=== PATIENT | male | born 1995 | race African-American/Black ===

== ENCOUNTER 2017-05-29 14:25 | Emergency (ER) | payer MEDICAID ==
[~2017-05-29] VITALS: Ht 172.7 cm; Wt 70.0 kg
[2017-05-29 14:27] VITALS: BP 150/94
== END 2017-05-29 18:22 | disposition left against medical advice (07) ==
LOC: ER 14:30
DX: R06.00 Dyspnea, unspecified (principal); Z53.21 Procedure and treatment not carried out due to patient leaving prior to being seen by health care provider

== ENCOUNTER 2017-05-30 05:05 | Emergency (ER) | payer MEDICAID ==
[~2017-05-30] VITALS: Ht 165.1 cm; Wt 70.0 kg
[2017-05-30 07:35] VITALS: BP 121/69
[2017-05-30] MEDS ORDERED: MAGNESIUM/ALUMINUM HYDROXIDE/SIMETHICONE 30ML UDC PO STA (07:36)
[2017-05-30] MEDS ORDERED: VISCOUS LIDOCAINE 2% 15 ML UDC PO STA (07:36)
[2017-05-30] MEDS ORDERED: FAMOTIDINE 20MG TABLET PO ONE (07:45)
== END 2017-05-30 09:07 | disposition home or self-care (01) ==
LOC: ER 05:05
DX: K21.9 Gastro-esophageal reflux disease without esophagitis (principal); J45.909 Unspecified asthma, uncomplicated; F43.10 Post-traumatic stress disorder, unspecified; F41.9 Anxiety disorder, unspecified; F17.200 Nicotine dependence, unspecified, uncomplicated; F31.9 Bipolar disorder, unspecified; F12.10 Cannabis abuse, uncomplicated
CPT/HCPCS: 99284; Z7610

== ENCOUNTER 2020-02-14 10:19 | Emergency (ER) | payer MEDICAID ==
[~2020-02-14] VITALS: Ht 177.8 cm; Wt 68.0 kg
[2020-02-14 11:58] LABS: CLARITY URINE CLEAR (CLEAR); COLOR URINE YELLOW (YELLOW); HEMATOCRIT. 44.6 % (42.0-52.0); HEMOGLOBIN. 15.2 g/dL (14.0-18.0); KETONES URINE 1+ (NEGATIVE); LEUKOCYTE ESTERASE URINE TRACE (NEGATIVE); MEAN CORPUSCULAR HEMOGLOBIN 30.5 pg (28.0-32.0); MEAN CORPUSCULAR VOLUME 89.5 fL (80.0-94.0); MEAN PLATELET VOLUME 8.7 fl (7.4-10.4); NITRITE URINE NEGATIVE (NEGATIVE); OCCULT BLOOD URINE NEGATIVE (NEGATIVE); PLATELET 200 x1000/uL (130-400); PROTEIN URINE TRACE (NEGATIVE); RED BLOOD CELL COUNT 4.98 mill/uL (4.7-6.1); RED CELL DISTRIBUTION WIDTH 12.6 % (11.6-14.6)
[2020-02-14 11:59] LABS: CHLORIDE 100 mEq/L (98-107)
[2020-02-14] MEDS ORDERED: ALBUTEROL (0.083%) 2.5MG/3ML NEB HHN ONE ×2 (12:00→12:45)
[2020-02-14] MEDS ORDERED: PREDNISONE 20MG TABLET PO ONE (12:00)
[2020-02-14 12:59] LABS: PLATELET ESTIMATE NORMAL
[2020-02-14 13:40] VITALS: BP 152/83
== END 2020-02-14 14:16 | disposition home or self-care (01) ==
LOC: ER 10:31
DX: R05 Cough (principal); R06.2 Wheezing; K21.9 Gastro-esophageal reflux disease without esophagitis; F32.9 Major depressive disorder, single episode, unspecified; F41.9 Anxiety disorder, unspecified; F12.10 Cannabis abuse, uncomplicated; Z21 Asymptomatic human immunodeficiency virus [HIV] infection status
CPT/HCPCS: 36415; 71045; 80053; 81003; 85025; 93005; 94640; 99284; J7512; Z7610